=== PATIENT | female | born 1975 | race Caucasian/White ===

== ENCOUNTER 2022-01-16 21:54 | Emergency (ER) | payer OTHER, SELFPAY ==
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
--- NOTE | ~2022-01-16 | XR_ITS ---
EXAMINATION: XR HIP, LEFT CLINICAL INFORMATION: Pain. COMPARISON: None TECHNIQUE: Frontal view of pelvis. Two views of the left hip. FINDINGS: No fracture of pelvis or hips. Joint spaces of the hips are normal. Sacroiliac joints are normal. Normal symphysis pubis. Transpedicular screws at lumbosacral junction bilateral. XR/XR hip LT w PEL1V IMPRESSION: Normal pelvis and hips.
[2022-01-16 22:00] VITALS: BP 165/83; PULSE 80; RESP 18; TEMP 36.9; O2SAT 97; BMI 25.7
[2022-01-16] MEDS: Lidocaine 4 % Patch ADH..PATCH 1 PATCH TRANSDERMA (22:54)
[2022-01-16] MEDS: Acetaminophen 325 MG TABLET 975 MG PO (22:55)
[2022-01-16] MEDS: Cyclobenzaprine HCl 5 MG TABLET PO (22:55)
[2022-01-16 22:57] LABS: Appearance Urine CLEAR; Color Urine YELLOW; Glucose Urine UA NEG (NEG); Leukocyte Esterase Urine NEG (NEG); Nitrite Urine NEG (NEG); PH 7.5 (5.0-8.0); Specific Gravity - Urine 1.015 (1.005-1.025); Urine Blood NEG (NEG); Urine Ketones NEG (NEG); Urine Protein NEG (NEG-TRACE)
[2022-01-16 23:02] LABS: UPreg QC Valid YES; Urine Pregnancy NEGATIVE (NEGATIVE)
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
== END 2022-01-17 00:27 | disposition home or self-care (01) ==
PROVIDERS: Emergency Provider Student in an Organized Health Care Education/Training Program; PCP Internal Medicine
DX: M62.838 Other muscle spasm (principal); S80.11XA Contusion of right lower leg, initial encounter; V48.0XXA Car driver injured in noncollision transport accident in nontraffic accident, initial encounter; Y93.89 Activity, other specified; Y92.414 Local residential or business street as the place of occurrence of the external cause; Y99.9 Unspecified external cause status
CPT/HCPCS: 73502; 73590; 81003; 81025; 96372; 99284

== ENCOUNTER 2023-06-22 11:35 | Outpatient (AMB) | payer OTHER, SELFPAY ==
--- NOTE | 2023-06-22 11:37 | A.OFFPC_ITS ---
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 Accompanied by: Self / Same As Patient Allergies Penicillins [PENICILLINS] Allergy (Severe, Verified 06/22/23 11:40) HIVES penicillin V Allergy (Unknown, Verified 06/22/23 11:40) rash Tobacco use date assessed: 06/22/23 Dental Screening Dental Screen Date: 06/22/23 Did you have a dental visit in the last 12 months?: No Did you have a dental problem in the last 6 months where you did not have access to dental care?: No Was dental information given to patient?: Yes HPI F/U, See Bulletin Board [facility] HPI Details chronic hep c; needs gi referral [facility] Medical History (Updated 06/22/23 @ 12:29 by Tomasz Jay MD) Hepatitis C Surgical History History of section History of lumbar spinal fusion Family History Mother No problems noted. Father No problems noted. Social History Housing: House Alcohol intake: never Patient Tobacco Use Status: Former Tobacco user Tobacco use type: Cigarette e-Cigarette/Vaping Use: Never Used Second Hand Smoke Exposure: No service: No Current occupational status: employed Cognitive needs: No Hearing needs: No Vision needs: No Questionnaire PHQ-9 Over the last 2 weeks, how often have you been bothered by any of the following problems? 1. Little interest or pleasure in doing things: not at all 2. Feeling down, depressed, or hopeless: not at all 3. Trouble falling or staying asleep, or sleeping too much: not at all 4. Feeling tired or having little energy: not at all 5. Poor appetite or overeating: not at all 6. Feeling bad about yourself - or that you are a failure or have let yourself or your family down: not at all 7. Trouble concentrating on things, such as reading the newspaper or watching television: not at all 8. Moving or speaking so slowly that other people could have noticed. Or the opposite - being so fidgety or restless that you have been moving around a lot more than usual: not at all 9. Thoughts that you would be better off or of hurting yourself in some way: not at all Total score: 0 Depression Screening Interpretation: Negative 59569 - PHQ-9 Billing: Yes Source: Developed by Drs. Mitch Black, Kristen Llamas, Contreras Wells and colleagues, with an educational lorna from [employer]. Thrive Questionnaire Date Thrive assessed: 06/22/23 I am a: Patient What is your living situation today?: I have a steady place to live Within the past 12 months, did the food you bought not last and you didn't have the money to get more?: Never true Within the past 12 months, did you worry whether your food would run out before you got money to buy more?: Never true Do you have trouble paying for medicines?: No Do you have trouble getting transportation to medical appointments?: No Do you have trouble paying your heating and electricity bill?: No Do you have trouble taking care of your child, family member or friend?: No Do you have trouble with day-to-day activities such as bathing, preparing meals, shopping, managing finances, etc.?: No Are you currently unemployed and looking for a job?: No Are you interested in more education?: No Please select the resources that you would like help with: None Currently or been in a relationship where the following occur: no concerns reported SHEILA-7 AMB Questionnaire SHEILA-7 Date SHEILA - 7 assessed: 06/22/23 Feeling nervous, anxious, or on edge: 0 = Not at all Not being able to stop or control worryin = Not at all Worrying too much about different things: 0 = Not at all Trouble relaxin = Not at all Being so restless that it is hard to sit still: 0 = Not at all Becoming easily annoyed or irritable: 0 = Not at all Feeling afraid as if something awful might happen: 0 = Not at all Total SHEILA-7 score (0-4 normal; 5-9 mild; 10-14 moderate; 15-21 severe): 0 Source: Developed by Drs. Mitch Black, Kristen Llamas, Contrersa Wells and colleagues, with an educational lorna from [employer]. SHEILA-7 Assessment Billing SHEILA-7 Assessment Tool: SHEILA-7 Assessment 31947 Review of Systems Const Denies chills, Denies fatigue, Denies headache(s) and Denies weight loss Eyes Denies change in vision, Denies diplopia and Denies eye pain ENT Denies vertigo, Denies dizziness, Denies headache(s) and Denies nasal discharge Card Denies chest pain, Denies rapid heart rate and Denies dyspnea on exertion Resp Denies chest congestion, Denies cough, Denies pain with cough and Denies dyspnea on exertion GI Denies abdominal pain, Denies hematochezia and Denies change in bowel habits Musc Denies myalgias, Denies arthralgias and Denies joint swelling Skin/Breast Denies lesions and Denies unusual bruising Neuro Denies vertigo, Denies dizziness, Denies headache(s) and Denies focal weakness Endo Denies fatigue Physical exam (Primary Care) Vital Signs: Last Vital Signs Pulse 82 06/22/23 11:39 BP 136/80 06/22/23 11:39 Pulse Ox 97 06/22/23 11:39 BMI result Body Mass Index 27.7 Tobacco/Smoking Status: Tobacco use Status Tobacco use date assessed 06/22/23 06/22/23 11:44 Patient Tobacco Use Status Former Tobacco user 06/22/23 11:37 Tobacco use type Cigarette 06/22/23 11:37 e-Cigarette/Vaping Use Never Used 06/22/23 11:37 PHQ-9: PHQ-9 Score PHQ-9: Total score 0 06/22/23 11:44 Depression Screening Interpretation: Negative Thrive Assessment: Date of Thrive Assessment Date Thrive assessed 06/22/23 06/22/23 11:44 Currently or been in a relationship where the following occur: no concerns reported Const General: cooperative, healthy appearing and no acute distress Orientation/consciousness: oriented to person, oriented to place and oriented to time HENMT Head: Yes normal to inspection, Yes normocephalic and Yes atraumatic Mouth: Normal oral and palatal mucosa present and tongue normal Throat: Yes posterior oropharynx normal and Yes uvula midline Eyes General: appearance normal, both eyes and all related structures Neck Neck: Yes normal visual inspection, Yes full ROM and Yes no lymphadenopathy Thyroid: Thyroid normal Carotids: normal carotid upstroke Chest Chest palpation & inspection: normal inspection of the chest Resp Effort & Inspection: normal respiratory effort and able to speak in complete sentences Auscultation: clear to auscultation bilaterally Cardio Jugular venous distension: no JVD Palpation: normal PMI Rate: regular rate Rhythm: regular rhythm Heart sounds: S1 normal heart sound present and S2 normal heart sound present GI Inspection: Yes normal to inspection Palpation (GI): Soft to palpation and No hepatosplenomegaly present Auscultation: normal bowel sounds General: Yes no CVA tenderness Back/Spine/Pelvis Back: no CVA tenderness Skin General skin exam: no rashes or lesions noted Neuro General: oriented to person, oriented to place and oriented to time Extrem General: Yes normal to inspection and Yes full ROM Assessment and Plan Assessment & Plan (1) Hepatitis C: Code(s): B19.20 - Unspecified viral hepatitis C without hepatic coma Plan: labs and referral Orders: Orders Comprehensive [place]. Panel Fast Today N28.9 - Disorder of kidney and ureter, unspecified Lipid Panel Today E78.5 - Hyperlipidemia, unspecified Complete Blood Count Auto Diff Today D64.9 - Anemia, unspecified Hepatitis C Antibody Today Z20.2 - Contact with and (suspected) exposure to infections with a predominantly sexual mode of transmission Hepatitis C Viral Load Today B19.20 - Unspecified viral hepatitis C without hepatic coma Referrals Gastroenterology Referral B19.20 - Unspecified viral hepatitis C without hepatic coma, Z12.11 - Encounter for screening for malignant neoplasm of colon Coding Level of Care Code Est Pt Level 4 (73698) Diagnoses Hepatitis C B19.20 Additional Codes SHEILA-7 Assessment Billing - SHEILA-7 Assessment Tool: SHEILA-7 Assessment 44593 ([id number])
[2023-06-22 11:39] VITALS: BP 136/80; PULSE 82; O2SAT 97; BMI 27.7
== END 2023-06-22 11:59 | disposition home or self-care (01) ==
PROVIDERS: PCP Internal Medicine; Visit Provider Internal Medicine
DX: B19.20 Unspecified viral hepatitis C without hepatic coma (principal)
CPT/HCPCS: 99214

== ENCOUNTER 2024-02-23 20:38 | Emergency (ER) | payer OTHER, SELFPAY ==
[2024-02-23 20:42] VITALS: BP 176/73; PULSE 80; RESP 18; TEMP 36.6; O2SAT 98; BMI 28.0
--- NOTE | 2024-02-23 20:45 | ED.GENADULT ---
HPI - General Adult General Chief complaint: Skin/Abscess/Foreign Body Stated complaint: bilateral leg cellulitis Related Data Previous Rx's Medication Instructions Recorded gabapentin 600 mg tablet 1,200 mg (2 x 600 mg) PO BID #180 07/13/23 tabs Allergies Allergy/AdvReac Type Severity Reaction Status Date / Time Penicillins [PENICILLINS] Allergy Severe HIVES Verified 02/23/24 20:41 penicillin V Allergy Unknown rash Verified 02/23/24 20:41 [facility] Past Medical History Medical History (Updated 02/24/24 @ 16:11 by PHILOMENA Mondragon) Hepatitis C Surgical History History of section History of lumbar spinal fusion Family History Family History Mother No problems noted. Father No problems noted. Social History Social History Housing: House Alcohol intake: never Patient Tobacco Use Status: Former Tobacco user Tobacco use type: Cigarette e-Cigarette/Vaping Use: Never Used Second Hand Smoke Exposure: No Advance Directives: No Advance Directives Information Provided: No service: No Current occupational status: employed Cognitive needs: No Hearing needs: No Vision needs: No Physical Exam ED Vital Signs: Vital Signs - 24 hr 02/23/24 20:42 Temperature 97.9 F Pulse Rate 80 Respiratory Rate 18 Blood Pressure 176/73 H Pulse Oximetry 98 Oxygen Delivery Method Room Air BMI result Body Mass Index 28.0 Course Course Course Narrative: RME: 48 yo female hx of hep C here for eval of I have cellulitis . reports b/l LE swelling/pain x1 year. admits to IVDU (cocaine) last used yesterday.?has been elevating LEs with improvement in swelling. no hx diabetes. no chest pain, sob. 2+ pitting edema noted to LLE. multiple skin lesions secondary to IVDU. labs ordered. Full HPI, ROS and PE to be performed by the primary ED provider. Reevaluation(s) Reevaluation #1: Patient left the emergency department without completing treatment. Discharge Plan Discharge Clinical Impression: Peripheral edema Patient Disposition: Left Without Being Seen Interventions: LWBS Worksheet Last Done: 02/24/24 00:45 Discharge Date/Time: 02/24/24 00:46
--- NOTE | 2024-02-23 21:28 | MHC.EDTECH ---
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
== END 2024-02-24 00:46 | disposition left against medical advice (07) ==
PROVIDERS: Emergency Provider Emergency Medicine; PCP Internal Medicine
DX: R60.0 Localized edema (principal); F14.90 Cocaine use, unspecified, uncomplicated
CPT/HCPCS: 99281

== ENCOUNTER 2024-12-26 13:42 | Outpatient (AMB) | payer OTHER, SELFPAY ==
--- NOTE | 2024-12-26 13:48 | A.OFFPC_ITS ---
Vital Signs 12/26/24 13:49 Height 5 ft 11 in Weight 177 lb 6 oz BMI 24.7 BP 120/62 Blood Pressure Location Lt brachial Position Sitting Pulse 73 Pulse Source Pulse Oximeter Temp 96.9 F Temp Source Skin Pulse Oximetry (%) 98 Oxygen Delivery Method Room Air Intake Visit Reasons: Annual PE Intake Note: Patient is here today for a physical. Pt decline flu shot today. 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 Accompanied by: Self / Same As Patient Allergies Penicillins [PENICILLINS] Allergy (Severe, Verified 12/26/24 13:49) HIVES penicillin V Allergy (Unknown, Verified 12/26/24 13:49) rash Medication List - Last Reconciled 12/27/24 by Tomasz Jay MD gabapentin 1,200 mg (2 x 600 mg) PO BID Tobacco use date assessed: 12/26/24 Dental Screening Dental Screen Date: 12/26/24 Did you have a dental visit in the last 12 months?: No Did you have a dental problem in the last 6 months where you did not have access to dental care?: No Was dental information given to patient?: No HPI Annual PE HPI Details feels well [facility] Medical History (Updated 12/27/24 @ 08:49 by Tomasz Jay MD) Hepatitis C Surgical History History of section History of lumbar spinal fusion Family History (Updated 12/26/24 @ 13:48 by PEYTON Snow) Mother No problems noted. Father No problems noted. Social History Housing: House Alcohol intake: never Patient Tobacco Use Status: Former Tobacco user Tobacco use type: Cigarette e-Cigarette/Vaping Use: Never Used Second Hand Smoke Exposure: Yes service: No Current occupational status: employed Cognitive needs: No Hearing needs: No Vision needs: No Questionnaire PHQ-9 Over the last 2 weeks, how often have you been bothered by any of the following problems? 1. Little interest or pleasure in doing things: not at all 2. Feeling down, depressed, or hopeless: not at all 3. Trouble falling or staying asleep, or sleeping too much: not at all 4. Feeling tired or having little energy: not at all 5. Poor appetite or overeating: not at all 6. Feeling bad about yourself - or that you are a failure or have let yourself or your family down: not at all 7. Trouble concentrating on things, such as reading the newspaper or watching television: more than half the days 8. Moving or speaking so slowly that other people could have noticed. Or the opposite - being so fidgety or restless that you have been moving around a lot more than usual: not at all 9. Thoughts that you would be better off or of hurting yourself in some way: not at all Total score: 2 Depression Screening Interpretation: Positive Depression Screening Done: Yes Source: Developed by Drs. Mitch Black, Kristen Llamas, Contreras Wells and colleagues, with an educational lorna from [employer]. Thrive Questionnaire Date Thrive assessed: 12/26/24 I am a: Patient What is your living situation today?: I have a place to live, but I am worried about losing it in the future Within the past 12 months, did the food you bought not last and you didn't have the money to get more?: Sometimes True Within the past 12 months, did you worry whether your food would run out before you got money to buy more?: Sometimes True Do you have trouble paying for medicines?: Yes Do you have trouble getting transportation to medical appointments?: Yes Do you have trouble paying your heating and electricity bill?: Yes Do you have trouble taking care of your child, family member or friend?: I choose not to answer this question Do you have trouble with day-to-day activities such as bathing, preparing meals, shopping, managing finances, etc.?: No Are you currently unemployed and looking for a job?: Yes Are you interested in more education?: Yes Please select the resources that you would like help with: Housing/[facility], Food, Paying for medicine, Transportation, Utilities, Job search/training and Education Currently or been in a relationship where the following occur: I choose not to answer THRIVE Score: 5 AUDIT C Alcohol Use Questionnaire (AUDIT-C) 1. How often do you have a drink containing alcohol?: Never Total Score: 0 SHEILA-7 AMB Questionnaire SHEILA-7 Date SHEILA - 7 assessed: 12/26/24 Feeling nervous, anxious, or on edge: 0 = Not at all Not being able to stop or control worryin = Not at all Worrying too much about different things: 0 = Not at all Trouble relaxin = Not at all Being so restless that it is hard to sit still: 1 = Several days Becoming easily annoyed or irritable: 1 = Several days Feeling afraid as if something awful might happen: 0 = Not at all Total SHEILA-7 score (0-4 normal; 5-9 mild; 10-14 moderate; 15-21 severe): 2 Source: Developed by Drs. Mitch Black, Kristen Llamas, Contreras Wells and colleagues, with an educational lorna from [employer]. Review of Systems Const Denies chills, Denies fatigue, Denies headache(s) and Denies weight loss Eyes Denies change in vision, Denies diplopia and Denies eye pain ENT Denies vertigo, Denies dizziness, Denies headache(s) and Denies nasal discharge Card Denies chest pain, Denies rapid heart rate and Denies dyspnea on exertion Resp Denies chest congestion, Denies cough, Denies pain with cough and Denies dyspnea on exertion GI Denies abdominal pain, Denies hematochezia and Denies change in bowel habits Musc Denies myalgias, Denies arthralgias and Denies joint swelling Skin/Breast Denies lesions and Denies unusual bruising Neuro Denies vertigo, Denies dizziness, Denies headache(s) and Denies focal weakness Endo Denies fatigue Physical exam (Primary Care) Vital Signs: Last Vital Signs Temp 96.9 F 12/26/24 13:49 Pulse 73 12/26/24 13:49 BP 120/62 12/26/24 13:49 Pulse Ox 98 12/26/24 13:49 Oxygen Delivery Method Room Air 12/26/24 13:49 BMI result Body Mass Index 24.7 Tobacco/Smoking Status: Tobacco use Status Tobacco use date assessed 12/26/24 12/26/24 13:53 Patient Tobacco Use Status Former Tobacco user 12/26/24 13:53 Tobacco use type Cigarette 12/26/24 13:53 e-Cigarette/Vaping Use Never Used 12/26/24 13:53 PHQ-9: PHQ-9 Score PHQ-9: Total score 2 12/26/24 13:53 Depression Screening Interpretation: Positive Thrive Assessment: Date of Thrive Assessment Date Thrive assessed 12/26/24 12/26/24 13:53 Currently or been in a relationship where the following occur: I choose not to answer Const General: cooperative, healthy appearing and no acute distress Orientation/consciousness: oriented to person, oriented to place and oriented to time HENMT Head: Yes normal to inspection, Yes normocephalic and Yes atraumatic Mouth: Normal oral and palatal mucosa present and tongue normal Throat: Yes posterior oropharynx normal and Yes uvula midline Eyes General: appearance normal, both eyes and all related structures Neck Neck: Yes normal visual inspection, Yes full ROM and Yes no lymphadenopathy Thyroid: Thyroid normal Carotids: normal carotid upstroke Chest Chest palpation & inspection: normal inspection of the chest Resp Effort & Inspection: normal respiratory effort and able to speak in complete sentences Auscultation: clear to auscultation bilaterally Cardio Jugular venous distension: no JVD Palpation: normal PMI Rate: regular rate Rhythm: regular rhythm Heart sounds: S1 normal heart sound present and S2 normal heart sound present GI Inspection: Yes normal to inspection Palpation (GI): Soft to palpation and No hepatosplenomegaly present Auscultation: normal bowel sounds General: Yes no CVA tenderness Back/Spine/Pelvis Back: no CVA tenderness Skin General skin exam: no rashes or lesions noted Neuro General: oriented to person, oriented to place and oriented to time Extrem General: Yes normal to inspection and Yes full ROM Coding Level of Care Code Est Pt Prev Care 40-64y(33223) Diagnoses Physical exam Z00.00 Assessment & Plan Assessment & Plan (1) Physical exam: Code(s): Z00.00 - Encounter for general adult medical examination without abnormal findings Category: Medical Plan: do labs Orders: Orders Complete Blood Count Auto Diff 12/26/24 Z13.0 - Encounter for screening for diseases of the blood and blood-forming organs and certain disorders involving the immune mechanism Comprehensive [place]. Panel Fast 12/26/24 Z13.9 - Encounter for screening, unspecified Lipid Panel 12/26/24 Z13.220 - Encounter for screening for lipoid disorders Thyroid Stimulating Hormone 12/26/24 Z13.29 - Encounter for screening for other suspected endocrine disorder Referrals Speech and Hearing Referral H91.90 - Unspecified hearing loss, unspecified ear
[2024-12-26 13:49] VITALS: BP 120/62; PULSE 73; TEMP 36.1; O2SAT 98; BMI 24.7
== END 2024-12-26 14:05 | disposition home or self-care (01) ==
PROVIDERS: PCP Internal Medicine; Visit Provider Internal Medicine
DX: Z00.00 Encounter for general adult medical examination without abnormal findings (principal)

== ENCOUNTER → 2024-12-26 13:42 | Outpatient (BNVA) | payer OTHER, SELFPAY | PROVIDERS: PCP Internal Medicine; Visit Provider Internal Medicine | DX: Z00.00 Encounter for general adult medical examination without abnormal findings (principal); H91.90 Unspecified hearing loss, unspecified ear | CPT/HCPCS: 99396 ==

== ENCOUNTER 2025-11-08 15:33 | Outpatient (AMB) | payer OTHER, SELFPAY ==
[2025-11-08 15:34] VITALS: BP 140/64; PULSE 51; RESP 18; O2SAT 100; BMI 24.5
--- NOTE | 2025-11-08 15:34 | MHC.PC.OV ---
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 Accompanied by: Self / Same As Patient Allergies Penicillins (PENICILLINS) Allergy (Severe, Verified 11/08/25 16:00) HIVES penicillin V Allergy (Unknown, Verified 11/08/25 16:00) rash Medication List - Last Reconciled 11/08/25 by SINGH Maya gabapentin 1,200 mg (2 x 600 mg) PO BID Tobacco use date assessed: 11/08/25 Dental Screening Dental Screen Date: 11/08/25 Did you have a dental visit in the last 12 months?: No Did you have a dental problem in the last 6 months where you did not have access to dental care?: No Was dental information given to patient?: No HPI HPI Comments History of Present Illness Details The patient is a 50 year old female presenting for transition of care from Dr. Jay, who retired earlier this year. Reports that she is here for medication discussion and a skin problem. She reports new bumps on her face and also has them on her back. She has a history of a similar skin issue on her leg in the past. She denies any recent changes in makeup or other products. She also notes some leg swelling that improves with elevation. The patient has a history of low back pain. Years ago, she was diagnosed with spondylolisthesis and a crushed vertebra, which required surgical intervention with linette placement. She reports taking gabapentin for her back pain. Regarding health maintenance, the patient has not had a mammogram or seen an APPLIANCE PARTS COUNTER CLERK in approximately three years. Her last lab work was in 2018. She reports smoking a little. Health Maintenance A referral to an APPLIANCE PARTS COUNTER CLERK will be placed as the patient is overdue for a visit. She is also overdue for a mammogram. Orders for blood work and a urinalysis will be placed to perform a general health check, as her last labs were in 2018. A complete metabolic panel was ordered to monitor for side effects of Tylenol, and she was advised to stay well-hydrated. Social History - Substance Use: The patient reports she smokes a little. Results - Labs: The patient's last blood work was in 2018. [facility] Medical History (Updated 11/12/25 @ 06:06 by SINGH Maya) Chronic back pain Hepatitis C Surgical History History of section History of lumbar spinal fusion Family History Mother No problems noted. Father No problems noted. Social History Housing: House Alcohol intake: never Patient Tobacco Use Status: Former Tobacco user Tobacco use type: Cigarette e-Cigarette/Vaping Use: Never Used Second Hand Smoke Exposure: Yes service: No Current occupational status: employed Cognitive needs: No Hearing needs: No Vision needs: No Questionnaire Thrive Questionnaire Date Thrive assessed: 11/08/25 I am a: Patient What is your living situation today?: I have a place to live, but I am worried about losing it in the future Within the past 12 months, did the food you bought not last and you didn't have the money to get more?: Sometimes True Within the past 12 months, did you worry whether your food would run out before you got money to buy more?: Sometimes True Do you have trouble paying for medicines?: Yes Do you have trouble getting transportation to medical appointments?: Yes Do you have trouble paying your heating and electricity bill?: Yes Do you have trouble taking care of your child, family member or friend?: I choose not to answer this question Do you have trouble with day-to-day activities such as bathing, preparing meals, shopping, managing finances, etc.?: No Are you currently unemployed and looking for a job?: Yes Are you interested in more education?: Yes Currently or been in a relationship where the following occur: I choose not to answer THRIVE Score: 5 SHEILA-7 AMB Questionnaire SHEILA-7 Date SHEILA - 7 assessed: 12/26/24 Source: Developed by Drs. Mitch Black, Kristen Llamas, Contreras Wells and colleagues, with an educational lorna from [employer]. Review of Systems Narrative Review of Systems - Integumentary: Reports new bumps on her face and back. - Cardiovascular: Denies chest pain. Reports leg swelling that improves with elevation. - Respiratory: Denies shortness of breath. - Gastrointestinal: Denies stomach pain, heartburn, constipation, and diarrhea. - Genitourinary: Denies burning with urination. - Musculoskeletal: Reports low back pain. Denies pain elsewhere. Const Denies headache(s) Eyes Denies loss of vision ENT Denies vertigo, Denies dizziness, Denies headache(s) and Denies sore throat Card Denies chest pain, Denies leg edema and Denies lightheadedness Resp Denies cough, Denies hemoptysis and Denies wheezing GI Denies abdominal pain, Denies melena, Denies constipation, Denies diarrhea and Denies vomiting Denies urinary frequency, Denies dysuria and Denies urinary urgency Musc Reports back pain (Chronic), Denies arthralgias, Denies joint swelling, Denies numbness and Denies tingling Skin/Breast Reports sores (Left upper back, right calf and left chin areas) Neuro Denies Abnormal speech present, Denies behavioral changes, Denies vertigo, Denies dizziness, Denies headache(s), Denies loss of vision, Denies memory loss, Denies numbness and Denies tingling Psych Denies anxiety, Denies behavioral changes, Denies depression, Denies memory loss and Denies panic attacks Nickolas/Lymph Denies easy bleeding and Denies easy bruising Aller/Immun Denies wheezing Physical exam (Primary Care) Vital Signs: Last Vital Signs Pulse 51 11/08/25 15:34 Resp 18 11/08/25 15:34 BP 140/64 H 11/08/25 15:34 Pulse Ox 100 11/08/25 15:34 Oxygen Delivery Method Room Air 11/08/25 15:34 BMI result Body Mass Index 24.5 Tobacco/Smoking Status: Tobacco use Status Tobacco use date assessed 11/08/25 11/08/25 15:37 Patient Tobacco Use Status Former Tobacco user 11/08/25 15:37 Tobacco use type Cigarette 11/08/25 15:37 e-Cigarette/Vaping Use Never Used 11/08/25 15:37 Thrive Assessment: Date of Thrive Assessment Date Thrive assessed 11/08/25 11/08/25 15:37 Currently or been in a relationship where the following occur: I choose not to answer Narrative Physical Exam - Vitals: Blood pressure was noted to be a little elevated and will be rechecked. - Lungs: Clear to auscultation. Const General: healthy appearing, no acute distress, alert and awake Nutritional Appearance: well nourished Orientation/consciousness: oriented to person, oriented to place and oriented to time HENMT Ears: TM's normal bilaterally General nose exam: Normal nasal mucous membranes and turbinates present Eyes Conjunctivae: conjunctivae normal Sclerae: sclerae normal Pupils: Equal, round and reactive pupils present Neck Neck: Yes no lymphadenopathy and Yes no JVD Thyroid: Thyroid normal Carotids: no bruits Resp Effort & Inspection: normal respiratory effort and not tachypneic Auscultation: no crackles, no rales, no rhonchi and no wheezes Cardio Rate: regular rate Rhythm: regular rhythm Heart sounds: no murmurs and normal S1 and S2 GI Palpation (GI): Soft to palpation, nontender, no hepatomegaly and no splenomegaly Auscultation: normal bowel sounds Skin General skin exam: dry skin Wounds: wounds noted (left upper back, right calf and left side of chin opened sores) Neuro General: oriented to person, oriented to place and oriented to time Cranial nerves: Yes Equal, round and reactive pupils present Speech: No Abnormal speech present Gait exam (Neuro): Normal gait present Motor exam (neuro): no tremor noted Extrem Right upper extremity: full ROM Left upper extremity: full ROM Right lower extremity: full ROM; no edema Left lower extremity: full ROM; no edema Psych Mental Status: mental status grossly normal Speech and movement: Normal speech and movement present Affect: normal affect Attitude: cooperative Thought process: Normal thought process present Coding Level of Care Code Est Pt Level 4 (53353) Diagnoses Chronic bilateral low back pain, unspecified whether sciatica present M54.50; G89.29 Back pain location: low back pain Back pain laterality: bilateral Sciatica presence: unspecified whether sciatica present Skin sore L98.9 Routine health maintenance Z00.00 Time Spent (min) 37 Assessment & Plan Assessment & Plan (1) Chronic back pain: Code(s): M54.9 - Dorsalgia, unspecified; G89.29 - Other chronic pain Category: Medical Qualifiers: Back pain location: low back pain Back pain laterality: bilateral Sciatica presence: unspecified whether sciatica present Qualified Code(s): M54.50 - Low back pain, unspecified; G89.29 - Other chronic pain Plan: The patient uses gabapentin for low back pain, which is related to her history of spondylolisthesis and vertebral surgery. Medication usage was reviewed. Refilled Rx. Reinforced activity and weight limitation (2) Skin sore: Code(s): L98.9 - Disorder of the skin and subcutaneous tissue, unspecified Category: Medical Plan: Skin sores:(left side of chin, reports acne, left upper back consistent with scab removal, similar to right calf skin sore). Left upper back open sore with mild edema and erythema periwound. Doxycycline ordered for cellulitis and mupirocin 2% topical ordered to apply to the areas locally. Contact office for the areas are not healing or worsens. (3) Routine health maintenance: Code(s): Z00.00 - Encounter for general adult medical examination without abnormal findings Category: Medical Plan: The patient was referred to [facility] and a mammogram was ordered. Comprehensive blood work was ordered to further evaluate the patient health status. Plan Plan Patient was informed and verbally consented to the use of an ambient scribe for clinic note documentation during this visit. 1. Skin Condition For the patient's acne on her face and back, a prescription for doxycycline and a topical cream, which is a stronger formulation than [id number] options, will be sent. She was advised to call if the condition does not improve. 2. Low Back Pain The patient uses gabapentin for low back pain, which is related to her history of spondylolisthesis and vertebral surgery. Medication usage was reviewed. Discussion Notes I discussed the patient's skin concerns and will prescribe doxycycline and a topical cream. I advised her to call if her skin condition does not resolve. We reviewed her health maintenance needs, noting she is overdue for an APPLIANCE PARTS COUNTER CLERK visit, mammogram, and lab work, her last being in 2018. I am placing orders for blood work and a urinalysis. I also explained the importance of preventative care, using the example of colonoscopies to remove polyps and prevent cancer, to encourage her to keep up with annual check-ups. I am also placing a referral to an APPLIANCE PARTS COUNTER CLERK for her. We discussed the need for a complete metabolic panel due to her Tylenol use and the importance of staying hydrated. Patient Instructions - I have ordered lab work (blood tests) and a urine test for you. Please get these done as soon as you can. - I am prescribing an oral antibiotic, doxycycline, and a topical cream for your skin condition. Please use them as directed. - If your skin condition does not get better, please call me. - A referral will be sent for you to see an APPLIANCE PARTS COUNTER CLERK for a check-up. - It is important to attend your annual check-ups to stay on top of preventative health screenings. - Make sure you drink plenty of water to stay well-hydrated, especially since you take Tylenol. Orders: Orders Comprehensive [place]. Panel Fast 11/08/25 L73.9 - Follicular disorder, unspecified, Z00.00 - Encounter for general adult medical examination without abnormal findings Vitamin D 25-OH Total 11/08/25 L73.9 - Follicular disorder, unspecified, Z00.00 - Encounter for general adult medical examination without abnormal findings MM tomosynthesis screening BI Today Z12.31 - Encounter for screening mammogram for malignant neoplasm of breast Complete Blood Count Auto Diff 11/08/25 L73.9 - Follicular disorder, unspecified, Z00.00 - Encounter for general adult medical examination without abnormal findings Lipid Panel 11/08/25 L73.9 - Follicular disorder, unspecified, Z00.00 - Encounter for general adult medical examination without abnormal findings UA CC w/rflx Micro + Cult 11/08/25 L73.9 - Follicular disorder, unspecified, Z00.00 - Encounter for general adult medical examination without abnormal findings TSH reflex Free T4 11/08/25 L73.9 - Follicular disorder, unspecified, Z00.00 - Encounter for general adult medical examination without abnormal findings Hemoglobin A1c 11/08/25 L73.9 - Follicular disorder, unspecified, Z00.00 - Encounter for general adult medical examination without abnormal findings Referrals APPLIANCE PARTS COUNTER CLERK Referral Z01.419 - Encounter for gynecological examination (general) (routine) without abnormal findings, Z12.4 - Encounter for screening for malignant neoplasm of cervix Medications: New doxycycline monohydrate 100 mg PO BID 20 tabs 0RF 10 days mupirocin 2% (Centany) 1 appl topical BID 22 grams 0RF
--- OUTSIDE RECORDS SUMMARY | 2025-11-08 20:23 | XMS_ITS | Patient Health Record ---
Author Organization [facility] Address [address] [place] [address] Care Team Providers Care Hand Fur Cleaner Name Role Phone Tomasz Jay MD Primary Care Provider Mitch Trinidad Unavailable [phone] Allergies Allergen (clinical drug ingredient) Drug/Non Drug Allergy documented on EMR Reaction Allergy Type Onset Date Status Penicillin Unknown Drug Allergy Active Reason For Referral No Information Medications Medication SIG (Take, Route, Frequency, Duration) Notes Start Date End Date Status Methadone HCl 110 mg Tablet 1 tablet Orally Once a day A ctive Gabapentin 600 MG Tablet 1 tablet Orally four times a day Active Social History Social History Additional Details Category Social Info Options Details Miscellaneous: Marital status: Single Occupation: [employer] Notes: Smoker 1ppd; no alcohol Smoker 1ppd; no alcohol Problems Problem Type SNOMED Code ICD Code Onset Dates Problem Status W/U Status Risk Notes Problem Chronic hepatitis C ([id number]) Chronic hepatitis C without hepatic coma (B18.2) Active confirmed Problem Elevated liver enzymes level (333143371) Elevated liver enzymes (R74.8) Active confirmed Plan Of Treatment Pending Test Test Name Order Date LIVER PROFILE 03/11/2016 HEPATITIS C VIRAL LOAD 03/11/2016 US ABD 10/10/2015 Insurance Providers Payer Name Payer Address Payer Phone Subscriber Number Group Number Insured Name Patient Relationship to Insured Coverage Start Date Coverage End Date [facility] [employer] [facility] [address] [address] [place], [place] [id number] JUAN F COVINGTON Self - patient is the insured Medical (General) History Medical History History ICD Code Hepatitis C--she has known a bout it since at least 2004--former IVDA--reports abstinence since 2008. Genotype 3A. Hepatitis C viral load over 18,000 in January of 2015. Liver profile in November of 2014 showed an AST of 33 and ALT of 47. She had a liver biopsy in September 2015 revealing some fatty liver, grade 1/4 hepatitis and stage 0-I/IV fibrosis Denies FL,DM,CVA,Lung disease,renal dise ase Back pain Surgical History Surgery Date(Month/Year) Back surgery--lower back 2008
== END 2025-11-08 16:16 | disposition home or self-care (01) ==
LOC: HO.HMCH 15:34
DX: M54.50 Low back pain, unspecified (principal); G89.29 Other chronic pain; L98.9 Disorder of the skin and subcutaneous tissue, unspecified; Z00.00 Encounter for general adult medical examination without abnormal findings

== ENCOUNTER → 2025-11-08 15:33 | Outpatient (BNVA) | payer OTHER, SELFPAY | PROVIDERS: PCP Internal Medicine | DX: Z00.00 Encounter for general adult medical examination without abnormal findings (principal); M54.50 Low back pain, unspecified; L98.9 Disorder of the skin and subcutaneous tissue, unspecified; G89.29 Other chronic pain | CPT/HCPCS: 99212 ==